=== PATIENT | female | born 1955 | race American Indian/Alaskan Native ===

== ENCOUNTER 2017-05-06 08:46 | Emergency (ER) | payer MEDICARE ==
[2017-05-06 09:24] LABS: Basophils % (Auto) 0.9 % (0.0-1.8); Eosinophils % (Auto) 1.6 % (0.0-4.3); Hematocrit 35.3 % (30.3-42.9); Hemoglobin 11.6 gm/dl (10.1-14.3); Mean Corpuscular HGB Conc 33 % (30-34); Mean Corpuscular Hemoglobin 28 pg (28-32); Mean Corpuscular Volume 85 fl (79-97); Platelet Count 227 K/mm3 (140-440); Red Blood Count 4.16 M/mm3 (3.65-5.03); Red Cell Distribution Width 14.8 % (13.2-15.2); White Blood Count 11.4 K/mm3 (4.5-11.0)
[2017-05-06 09:43] LABS: Alanine Aminotransferase 13 units/L (7-56); Alkaline Phosphatase 93 units/L (35-129); Anion Gap 21 mmol/L; BUN/Creatinine Ratio 18.88; Blood Urea Nitrogen 17 mg/dL (7-17); Calcium 9.3 mg/dL (8.4-10.2); Carbon Dioxide 26 mmol/L (22-30); Chloride 99.9 mmol/L (98-107); Glucose 191 mg/dL (65-100); Lipase 45 units/L (13-60); Sodium 143 mmol/L (137-145)
[2017-05-06] MEDS ORDERED: ZOFRAN IV ONE (14:09)
[2017-05-06] MEDS ORDERED: MORPHINE IV ONE (14:09)
[2017-05-06] MEDS ORDERED: NACL 0.9% 1000 ML 1,000 ML IV ONE (14:36)
[2017-05-06] MEDS ORDERED: NACL ONE (15:18)
--- NOTE | 2017-05-06 16:16 | Cat Scan Report ---
FINAL REPORT EXAM: CT ABDOMEN PELVIS W CON HISTORY: abd pain TECHNIQUE: CT abdomen and pelvis with intravenous contrast PRIORS: None. FINDINGS: No acute abnormality identified in the lung bases. No focal abnormality identified within the liver parenchyma. The patient is status post cholecystectomy. And the spleen demonstrates normal size and attenuation. No pancreatic abnormalities seen. The kidneys demonstrate symmetric contrast enhancement. No evidence of hydronephrosis. The adrenal glands are unremarkable Abdominal aorta is normal in caliber. Umbilical hernia is noted containing fatty tissue. No pathologically enlarged lymph nodes are identified. No signs of free fluid or free air No evidence of small bowel dilatation. Colon is nondistended. No pericolonic inflammatory change. The appendix is identified and is unremarkable. Urinary bladder is unremarkable. IMPRESSION: Small umbilical hernia. No evidence for entrapped bowel. No acute abnormality identified
--- NOTE | 2017-05-06 16:53 | Emergency Department Report ---
HPI - General Chief Complaint: Abdominal Pain Time Seen by Provider: 05/06/17 14:08 - HPI HPI: This is a 61-year-old -[place] female, who presents to ED with abdominal pain radiating to both flanks. Patient states the pain is 7 out of 10 , sharp has been going on for the past week and is accompanied by diarrhea. She states her diarrhea consist of loose stools, nonbloody, non-mucousy and occurs about 3-5 times daily. She states that she is on medication for diarrhea , she came to ED mainly today because she was trying to ambulate to use the restroom but could not get there fast enough and she had diarrhea on herself. Her neighbors came by to check on her and recommended that she call EMS. She also have chronic back pain which is made worse by her transport from her house to the ER. She brought her medications with her and she is on chronic opiate for her back pain. ED Past Medical Hx - Past Medical History Previous Medical History?: Yes Hx Hypertension: Yes Hx Diabetes: Yes - Surgical History Past Surgical History?: Yes Hx Cholecystectomy: Yes - Social History Smoking Status: Current Every Day Smoker Substance Use Type: None, Prescribed ED Review of Systems ROS: Stated complaint: DIARRHEA Other details as noted in HPI Comment: All other systems reviewed and negative Gastrointestinal: abdominal pain, nausea, diarrhea Musculoskeletal: back pain Physical Exam - Physical Exam Vital Signs: Vital Signs 05/06/17 08:54 Temperature 98.3 F Pulse Rate 83 Respiratory 18 Rate Blood Pressure 166/101 [Right] O2 Sat by Pulse 100 Oximetry Physical Exam: Physical Exam: - General Limitations: No Limitations General appearance: alert, in no apparent distress - Head Head exam: Present: atraumatic, normocephalic - Eye Eye exam: Present: normal appearance - ENT ENT exam: Present: mucous membranes moist - Neck Neck exam: Present: normal inspection - Respiratory Respiratory exam: Present: normal lung sounds bilaterally. Absent: respiratory distress - Cardiovascular Cardiovascular Exam: Present: normal rhythm. Absent: systolic murmur, diastolic murmur, rubs, gallop - GI/Abdominal GI/Abdominal exam: Present: soft, normal bowel sounds - Extremities Exam Extremities exam: Present: normal inspection - Back Exam Back exam: Present: normal inspection - Neurological Exam Neurological exam: Present: alert, oriented X3, - Skin Skin exam: Present: warm, dry, intact, normal color. Absent: rash ED Course Vital Signs 05/06/17 08:54 Temperature 98.3 F Pulse Rate 83 Respiratory 18 Rate Blood Pressure 166/101 [Right] O2 Sat by Pulse 100 Oximetry - Reevaluation(s) Reevaluation #1: 05/06/17 16:[address] did not show any acute finding. I discussed with her at length the results of her CAT scan, blood work. Advised to follow-up with primary care on Monday return to ED if symptoms worsen. 05/06/17 16:51 ED Medical Decision Making - Lab Data Result diagrams: 05/06/17 09:11 05/06/17 09:11 Critical care attestation.: If time is entered above; I have spent that time in minutes in the direct care of this critically ill patient, excluding procedure time. ED Disposition Clinical Impression: Chronic diarrhea Abdominal pain Qualifiers: Abdominal location: generalized Qualified Code(s): R10.84 - Generalized abdominal pain Disposition: DC-01 TO HOME OR SELFCARE Is pt being admited?: No Does the pt Need Aspirin: No Condition: Stable Instructions: Abdominal Pain (ED), Chronic Diarrhea (ED) Referrals: PRIMARY CARE, [Primary Care Provider] - 3-5 Days
[2017-05-06 17:32] VITALS: BP 165/69
== END 2017-05-06 19:00 | disposition home or self-care (01) ==
LOC: ED 08:46
DX: K52.9 Noninfective gastroenteritis and colitis, unspecified (principal); R10.84 Generalized abdominal pain; E11.9 Type 2 diabetes mellitus without complications; I10 Essential (primary) hypertension; F17.200 Nicotine dependence, unspecified, uncomplicated; Z88.6 Allergy status to analgesic agent
CPT/HCPCS: 36415; 74177; 80053; 83690; 85025; 96361; 96374; 96375; 99284; J2270; J2405; J7030; Q9967